=== PATIENT | female | born 1960 | race Caucasian/White ===

== ENCOUNTER 2019-01-09 15:26 | Emergency (ER) | payer SELFPAY ==
[2019-01-09] MEDS ORDERED: IV NORMAL SALINE 1,000ML 1,000 ML IV ONE ×2 (15:45→17:00)
--- NOTE | 2019-01-09 15:53 | PHYS DOC ---
Past History Past Surgical History: (�2) Smoking: Non-smoker Alcohol Use: None Drug Use: None Adult General HPI HPI 58-year-old female presents to the emergency department after being found down outside unknown amount of time. Patient states she was walking into [facility] this morning lasting she remembers around 10:30 or so she started to [employer] to get so mething drink and to cool off. She said she started walking after that time was found so swelling outside on the ground. Patient states no chest pain, shortness breath, nausea, vomiting no medical problems. She states she feels good. She is afebrile, heart rate is however 137. Review of Systems Review of Systems Constitutional: Denies fever or chills [] Eyes: Denies change in visual acuity, redness, or eye pain [] HENT: Denies nasal congestion or sore throat [] Respiratory: Denies cough or shortness of breath [] Cardiovascular: No additional information not addressed in HPI [] GI: Denies abdominal pain, nausea, vomiting, bloody stools or diarrhea [] Musculoskeletal: Denies back pain or joint pain [] Integument: Denies rash or skin lesions [] Neurologic: Denies headache, focal weakness or sensory changes [] All other systems were reviewed and found to be within normal limits, except as documented in this note. Current Medications Current Medications Current Medications Medications (Trade) Dose Ordered Sig/Derik Start Time Stop Time Status Last Admin Dose Admin Sodium Chloride 1,000 ml @ 1,000 mls/hr 1X ONCE 01/09/19 15:45 01/09/19 16:44 UNV Physical Exam Physical Exam Constitutional: Well developed, well nourished, no acute distress, non-toxic appearance, patient is diaphoretic[] HENT: Normocephalic, atraumatic, bilateral external ears normal, oropharynx moist, no oral exudates, nose normal. [] Eyes: PERRLA, EOMI, conjunctiva normal, no discharge. [] Neck: Normal range of motion, no tenderness, supple, no stridor. [] Cardiovascul: Tachycardia [] Lungs & Thorax: Bilateral breath sounds clear to auscultation [] Abdomen: Bowel sounds normal, soft, no tenderness, no masses, no pulsatile masses. [] Skin: Warm, dry, no erythema, no rash. [] Extremities: No tenderness, no cyanosis, no clubbing, no edema. [] Neurologic: Alert and oriented X 3, no focal deficits noted. [] Psychologic: Affect normal, judgement normal, mood normal. [] Current Patient Data Vital Signs emperature (Fahrenheit): * 99.0 degrees F (97.6-99.5) Patient Temperature * 99.0 degrees F (97.5-99.5) Temperature Source * Tympanic Blood Pressure Systolic * 105 mm Hg (100-140) Blood Pressure Diastolic * 70 mm Hg (60-100) Blood Pressure Mean * 82 mm Hg Pulse Rate * 143 beats per minute (60-90) H Respiratory Rate * 22 breaths per minute (12-24) Oxygen Delivery Method * Room Air Bedside Pulse Oximetry * 95 % Lab Results Laboratory Tests Test 01/09/19 16:00 White Blood Count 13.7 x10^3/uL Red Blood Count 4.39 x10^6/uL Hemoglobin 14.0 g/dL Hematocrit 41.4 % Mean Corpuscular Volume 94 fL Mean Corpuscular Hemoglobin 32 pg Mean Corpuscular Hemoglobin Concent 34 g/dL Red Cell Distribution Width 12.8 % Platelet Count 280 x10^3/uL Neutrophils (%) (Auto) 86 % Lymphocytes (%) (Auto) 5 % Monocytes (%) (Auto) 9 % Eosinophils (%) (Auto) 0 % Basophils (%) (Auto) 0 % Neutrophils # (Auto) 11.7 x10^3uL Lymphocytes # (Auto) 0.7 x10^3/uL Monocytes # (Auto) 1.2 x10^3/uL Eosinophils # (Auto) 0.0 x10^3/uL Basophils # (Auto) 0.0 x10^3/uL Sodium Level 147 mmol/L Potassium Level 3.2 mmol/L Chloride Level 108 mmol/L Carbon Dioxide Level 23 mmol/L Anion Gap 16 Blood Urea Nitrogen 38 mg/dL Creatinine 1.9 mg/dL Estimated GFR (Cockcroft-Gault) 27.1 BUN/Creatinine Ratio 20 Glucose Level 162 mg/dL Lactic Acid Level 3.6 mmol/L Calcium Level 10.7 mg/dL Total Bilirubin 2.2 mg/dL Aspartate Amino Transf (AST/SGOT) 33 U/L Alanine Aminotransferase (ALT/SGPT) 23 U/L Alkaline Phosphatase 78 U/L Creatine Kinase 510 U/L Troponin I Quantitative 0.114 ng/mL Total Protein 8.4 g/dL Albumin 4.4 g/dL Albumin/Globulin Ratio 1.1 Current Medications Medications (Trade) Dose Ordered Sig/Derik Route PRN Reason Start Time Stop Time Status Last Admin Dose Admin Sodium Chloride 1,000 ml @ 1,000 mls/hr 1X ONCE IV 01/09/19 15:45 01/09/19 16:44 DC 01/09/19 16:10 Aspirin (Children'S Aspirin) 324 mg 1X ONCE PO 01/09/19 16:00 01/09/19 16:03 DC Sodium Chloride 1,000 ml @ 1,000 mls/hr 1X ONCE IV 01/09/19 17:00 01/09/19 17:59 EKG EKG EKG reveals tachycardia, heart rate 137, right axis deviation appreciated, she does have ST depression 2 3 aVF as well as minimal depression V4 V5 and V6, no ST elevation appreciated.[] Radiology/Procedures Radiology/[place] [address] IMAGING REPORT Signed PATIENT: DESTIN TONY ACCOUNT: [id number] : 1960 LOCATION: ER AGE: 58 SEX: F EXAM STATUS: REG ER ORD. PHYSICIAN: TAMANNA DIAZ MD REASON: AMS, unknown onset, found down outside PROCEDURE: CT HEAD WO CONTRAST Exam: CT head INDICATION: Altered mental status TECHNIQUE: Sequential axial images through the head were obtained without the administration of IV contrast. Comparisons: None FINDINGS: No focal parenchymal lesion or hemorrhage is identified. There is no midline shift or sulcal effacement. No acute vascular territory infarction is identified. Juarez-white distinction is preserved. The ventricular system is within normal limits without compression hydrocephalus. The basal cisterns are well maintained. The visualized portions of the paranasal sinuses and mastoid air cells are well-pneumatized. No acute fractures. IMPRESSION: No acute intracranial abnormality. Exposure: One or more of the following in the visualized dose reduction techniques were utilized for this examination: 1. Automated exposure control 2. Adjustment of the MA and/or KV according to patient size Use of iterative of reconstructive technique Electronically signed by: Faustino Weeks MD (01/09/2019 4:06 PM) [id number] DICTATED AND SIGNED BY: FAUSTINO WEEKS MD DATE: 01/09/19 1606 CC: TAMANNA DIAZ MD; PCP,NO ~ [place] [address] IMAGING REPORT Signed PATIENT: DESTIN TONY ACCOUNT: [id number] : 1960 LOCATION: ER AGE: 58 SEX: F EXAM STATUS: REG ER ORD. PHYSICIAN: TAMANNA DIAZ MD REASON: found down, tachycarida, cough PROCEDURE: CHEST AP ONLY EXAM: Chest, single view. HISTORY: Bradycardia. COMPARISON: None. FINDINGS: A frontal view of the chest is obtained. There is no infiltrate, pleural effusion or pneumothorax. The heart is normal in size. There is severe rotatory scoliosis of the thoracolumbar spine. IMPRESSION: No acute pulmonary finding. Electronically signed by: Dave Martinez MD (01/09/2019 4:02 PM) [id number] DICTATED AND SIGNED BY: DAVE MARTINEZ MD DATE: 01/09/19 1602 CC: TAMANNA DIAZ MD; PCP,NO ~ [] Course & Med Decision Making Course & Med Decision Making Pertinent Labs and Imaging studies reviewed. (See chart for details) [ 58-year-old female presents to the emergency department after being found down outside unknown amount of time. Patient states she was walking into [facility] this morning lasting she remembers around 10:30 or so she started to [employer] to get something drink and to cool off. She said she started walking after that time was found so swelling outside on the ground. Patient states no chest pain, shortness breath, nausea, vomiting no medical problems. She states she feels good. She is afebrile, heart rate is however 137.] Labs/Imaging reviewed. + lactic acidosis and elevated trop (secondary to tachycardia) found to be elevated. Recommended admit for further observation and following of cardiac enzymes, lactic acidosis however she declines admission. AMA form signed. Patient continues to decline admission despite recommendation Jose Raul Disclaimer Dragon Disclaimer This electronic medical record was generated, in whole or in part, using a voice recognition dictation system. Departure Departure: Impression: Primary Impression: Lactic acid acidosis Additional Impression: DARREN (acute kidney injury) Disposition: 07 AGAINST MEDICAL ADVICE Condition: STABLE Referrals: PCP,NO (PCP) Patient Instructions: Heat-Related Illness, Lactic Acid, Lactate Additional Instructions: Recommend returning to the ER with worsening symptoms IV hydration provided [address] head negative Problem Qualifiers TAMANNA DIAZ MD Jan 09, 2019 15:53
[2019-01-09] MEDS ORDERED: ASPIRIN 81 MG TAB.CHEW PO ONE (16:00)
--- NOTE | 2019-01-09 16:05 | RAD ---
EXAM: Chest, single view. HISTORY: Bradycardia. COMPARISON: None. FINDINGS: A frontal view of the chest is obtained. There is no infiltrate, pleural effusion or pneumothorax. The heart is normal in size. There is severe rotatory scoliosis of the thoracolumbar spine. IMPRESSION: No acute pulmonary finding. Electronically signed by: Sofie Glez MD (01/09/2019 4:02 PM) [facility]
--- NOTE | 2019-01-09 16:09 | RAD ---
Exam: CT head INDICATION: Altered mental status TECHNIQUE: Sequential axial images through the head were obtained without the administration of IV contrast. Comparisons: None FINDINGS: No focal parenchymal lesion or hemorrhage is identified. There is no midline shift or sulcal effacement. No acute vascular territory infarction is identified. Juarez-white distinction is preserved. The ventricular system is within normal limits without compression hydrocephalus. The basal cisterns are well maintained. The visualized portions of the paranasal sinuses and mastoid air cells are well-pneumatized. No acute fractures. IMPRESSION: No acute intracranial abnormality. Exposure: One or more of the following in the visualized dose reduction techniques were utilized for this examination: 1. Automated exposure control 2. Adjustment of the MA and/or KV according to patient size Use of iterative of reconstructive technique Electronically signed by: Faustino Cooper MD (01/09/2019 4:06 PM) [id number]
[2019-01-09 16:13] LABS: BASO % 0 % (0-3); EOS % 0 % (0-3); HEMATOCRIT 41.4 % (36.0-47.0); LYMPH # 0.7 x10^3/uL (1.0-4.8); LYMPH % 5 % (24-48); MEAN CORPUSCULAR HEMOGLOBIN 32 pg (25-35); MEAN CORPUSCULAR HGB CONC 34 g/dL (31-37); MEAN CORPUSCULAR VOLUME 94 fL (79-100); MONO # 1.2 x10^3/uL (0.0-1.1); MONO % 9 % (0-9); NEUT # 11.7 x10^3uL (1.8-7.7); NEUT % 86 % (31-73); PLATELET COUNT 280 x10^3/uL (140-400); RED BLOOD COUNT 4.39 x10^6/uL (3.50-5.40); RED CELL DISTRIBUTION WIDTH 12.8 % (11.5-14.5); WHITE BLOOD COUNT 13.7 x10^3/uL (4.0-11.0)
[2019-01-09 16:30] LABS: ALBUMIN 4.4 g/dL (3.4-5.0); ALBUMIN/GLOBULIN RATIO 1.1 (1.0-1.7); CALCIUM 10.7 mg/dL (8.5-10.1); CREATININE 1.9 mg/dL (0.6-1.0); GFR 27.1; POTASSIUM 3.2 mmol/L (3.5-5.1); TOTAL BILIRUBIN 2.2 mg/dL (0.2-1.0); TOTAL PROTEIN 8.4 g/dL (6.4-8.2)
[2019-01-09 16:33] VITALS: BP 105/70
--- NOTE | 2019-01-09 16:36 | EKG ---
[address] [address] Test Date: 2019-01-09 Test Time: 16:15:33 Pat Name: DESTIN TONY Department: Room: Gender: F Inbound Customer Service Agent: : 1960 Requested By: TAMANNA DIAZ Order Number: [id number] Reading MD: Measurements Intervals [place] Rate: 117 P: 51 NC: 124 QRS: 33 QRSD: 78 T: -54 QT: 316 QTc: 445 Interpretive Statements SINUS TACHYCARDIA QRS(T) CONTOUR ABNORMALITY CONSIDER ANTEROSEPTAL MYOCARDIAL DAMAGE ST & T ABNORMALITY, CONSIDER INFERIOR ISCHEMIA OR LEFT VENTRICULAR STRAIN T ABNORMALITY IN ANTERIOR LEADS ABNORMAL ECG RI6.01 No previous ECG available for comparison
== END 2019-01-09 17:11 | disposition left against medical advice (07) ==
LOC: ER 15:26
DX: N17.9 Acute kidney failure, unspecified (principal); E87.2 Acidosis; R41.82 Altered mental status, unspecified; Z98.890 Other specified postprocedural states
CPT/HCPCS: 36415; 70450; 71045; 80053; 82550; 83605; 84484; 85025; 93005; 96360; 99285-25; J7030